=== PATIENT | female | born 1990 | race Caucasian/White ===

== ENCOUNTER 2023-06-24 08:00 | Outpatient (CLI) | payer OTHER ==
--- NOTE | 2023-06-24 13:17 | XRAY Report ---
PROCEDURE: Knee 4 View LT INDICATIONS: LEFT KNEE PAIN TECHNIQUE: 4 views of the left knee(s) were acquired. COMPARISON: None. FINDINGS: Bones: No fractures or dislocations. No suspicious bony lesions. Mild tricompartmental degenerati ve changes of the left knee. Soft tissues: Small knee joint effusion. No suspicious soft tissue calcifications or masses. IMPRESSION: Left knee without acute fracture or dislocation. Mild tricompartmental osteoarthrosis with small left knee joint effusion. Reviewed by: Lalo Dai MD on 06/24/2023 1:16 PM PST Approved by: Lalo Dai MD on 06/24/2023 1:16 PM PST Station ID: [id number]
== END 2023-06-24 23:59 | disposition home or self-care (01) ==
LOC: DI.WOS 08:00
PROVIDERS: ATTEND Physician Assistant Surgical
DX: M17.12 Unilateral primary osteoarthritis, left knee (principal); M25.462 Effusion, left knee

== ENCOUNTER 2023-07-29 07:44 | Outpatient (CLI) | payer OTHER ==
--- NOTE | 2023-07-29 13:38 | MRI Report ---
PROCEDURE: KNEE WO - LT INDICATIONS: INTERNAL DERANGEMENT OF LEFT KNEE TECHNIQUE: Noncontrast sagittal PD fast spin echo and T2 fast spin echo with fat saturation, sagittal 3-D gradie nt sequence with fat saturation; coronal T1 spin echo and PD fast spin echo with fat saturation, and axial PD fast spin echo with fat saturation through the knee. COMPARISON: Left knee radiograph dated 06/24/2023. FINDINGS: Image quality: Excellent. Menisci: Signal abnormality involving posterior horn of medial meniscus which does not extend to luanne culating surface criteria for focal meniscal tear. The lateral meniscus is intact. The meniscal root ligaments appear intact. Cruciate ligaments: The anterior and posterior cruciate ligaments appear intact. Medial structures: The medial collateral ligament appears moderately thickened with intrasubstance T 2 hyperintense signal and surrounding soft tissue edema. No abnormal bursal fluid. Lateral structures: The lateral collateral ligament, long and short heads of the biceps femoris tend on appear intact. The popliteus tendon appears normal. Iliotibial band appears normal. Anterior structures: The quadriceps and patellar tendons appear intact. Patellar alignment is guerline l. No femoral trochlear dysplasia or ventral trochlear prominence. No edema in the infrapatellar fa t pad. Bones and cartilage: No bone marrow contusions or fractures. 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 Joint space: There is small to moderate knee joint fluid. There is a tiny Pitts's cyst. No gross loo se bodies. Normal appearing synovial plicae are incidentally noted. IMPRESSION: 1. Moderate grade sprain/intrasubstance partial thickness tear involving medial collateral ligament. 2. Degenerative signal within posterior horn of medial meniscus. No MR evidence of focal meniscal tea r. 3. The cruciate ligaments are intact. 4. 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 Reviewed by: Ag Ruby MD on 07/29/2023 1:36 PM PST Approved by: Ag Ruby MD on 07/29/2023 1:36 PM PST Station ID: [id number]
== END 2023-07-29 07:45 | disposition home or self-care (01) ==
LOC: DI 07:44
PROVIDERS: ATTEND Physician Assistant Surgical
DX: S83.412A Sprain of medial collateral ligament of left knee, initial encounter (principal); M22.42 Chondromalacia patellae, left knee